=== PATIENT | female | born 1955 | race Caucasian/White ===

== ENCOUNTER 2018-12-17 08:19 | Emergency (ER) | payer OTHER ==
[~2018-12-17] VITALS: Ht 162.6 cm; Wt 64.2 kg
[2018-12-17 08:29] VITALS: BP 129/69; PULSE 86; RESP 18; Ht 162.6 cm; Wt 64.2 kg
[2018-12-17] MEDS ORDERED: IBUPROFEN 600 MG TAB PO ONE (09:00)
[2018-12-17] MEDS ORDERED: IBUP-1542 PO (10:14)
[2018-12-17] MEDS ORDERED: CYCL10TA7 PO (10:14)
--- NOTE | 2018-12-17 11:02 | ERD ---
ER Documentation Chief Complaint Chief Complaint C/O LEFT SIDE OF NECK PAIN FOR 3 WEEK HPI 63-year-old female presents to the ED complaining of moderate neck pain that radiates down to her left shoulder for the past 3 weeks patient states pain is worse with certain movements. She states that she has already seen her primary care physician in which they are in process of giving her a referral to see an orthopedist. Patient states that she has not taken any medications. She denies chest pain, shortness of breath. ROS All systems reviewed and are negative except as per history of present illness. Medications Home Meds Active Scripts Cyclobenzaprine Hcl* (Cyclobenzaprine Hcl*) 10 Mg Tablet, 10 MG PO TID, #30 TAB Prov:ROXANN ANAYA PA-C 12/17/18 Ibuprofen* (Motrin*) 600 Mg Tab, 600 MG PO Q6H PRN for PAIN AND OR ELEVATED TEMP, #30 TAB Prov:ROXANN ANAYA PA-C 12/17/18 Allergies Allergies: Coded Allergies: sulfamethoxazole (Verified Allergy, Unknown, 12/04/15) trimethoprim (Verified Allergy, Unknown, 12/04/15) PMhx/Soc Medical and Surgical Hx: pt denies Surgical Hx Hx Miscellaneous Medical Probl: Yes (COPD, Arthritis) Hx Alcohol Use: Yes (social) Hx Substance Use: No Hx Tobacco Use: Yes Smoking Status: Former smoker Physical Exam Vitals Vital Signs Date Temp Pulse Resp B/P (MAP) Pulse Ox O2 O2 Flow FiO2 Time Delivery Rate 12/17/18 97.6 86 18 129/69 96 08:29 (89) Physical Exam GENERAL: WD/WN, in no apparent distress, non-toxic appearing HENT: NC/AT EYES: Conjunctiva normal NECK: Supple, no masses felt, tender to palpation on spine,tender to palpation on left trapezius muscle, full range of motion but has pain PULM: Normal labored breathing CV: Good capillary refill GI: Non-distended, no guarding BACK: no deformities noted, normal spinal curvature EXT: No clubbing, cyanosis, or edema NEURO: Moves on all fours, sensation intact, normal gait SKIN: intact PSYCH: Normal mood Results 24 hrs Current Medications Medications Dose Sig/Roberto Carlos Start Time Status Last (Trade) Ordered Route PRN Stop Time Admin Dose Reason Admin Ibuprofen 600 mg ONCE ONCE 2/21/19 DC 12/17/18 (Motrin) PO 09:00 09:03 12/17/18 09:01 Procedures/MDM 63-year-old female presents to the ED complaining of left neck pain that varies on her shoulder but this is likely due to DJD and cervical duct. Patient has Star been following up with her primary care physician and referrals are in process. Unfortunately I discussed with her that we will be unable to order an MRI for this today and that she will need her to wait for her referral. In the ED cervical x-ray was done and showed DJD. Patient is given prescription for Flexeril ibuprofen and instructions to follow-up with an orthopedist. I have shelli velasco return precautions stable to discharged home Cervical XRAY The bone mineralization is decreased. C7 and the cervicothoracic junction are not well seen on the lateral view due to shoulder artifact. Alignment of the cervical spine is normal. Vertebral body heights are maintained. There is mild intervertebral disc space narrowing at C4-C5 and C5-C6. Mild to moderate multilevel uncovertebral joint arthritis is present. Prevertebral soft tissues are unremarkable. Departure Diagnosis: Primary Impression: Neck pain Additional Impression: Cervical disc disorder with radiculopathy Condition: Stable Patient Instructions: Degenerative Disk Disease, Neck Pain, No Trauma, Radiculopathy, Cervical Additional Instructions: FOLLOW UP WITH YOUR PRIMARY CARE PHYSICIAN TOMORROW.Return to this facility if you are not improving as expected. Take all medicines as directed. Return to this facility if you are not improving as expected. You have been given a medicine which may cause drowsiness.DO NOT DRIVE OR OPERATE DANGEROUS MACHINERY while taking this medicine! ROXANN ANAYA PA-C Dec 17, 2018 11:02
== END 2018-12-17 10:32 | disposition home or self-care (01) ==
LOC: FTE 08:19
DX: M54.2 Cervicalgia (principal); J44.9 Chronic obstructive pulmonary disease, unspecified; M50.122 Cervical disc disorder at C5-C6 level with radiculopathy; M50.121 Cervical disc disorder at C4-C5 level with radiculopathy; Z87.891 Personal history of nicotine dependence
CPT/HCPCS: 72040; Z7610

== ENCOUNTER 2019-06-07 00:45 | Emergency (ER) | payer MEDICARE, OTHER ==
[~2019-06-07] VITALS: Ht 167.6 cm; Wt 58.0 kg
[~2019-06-07 00:45] MED LIST: ALBU18HF INHALATION; CYCL10TA7 PO; IBUP-1542 PO
[2019-06-07 00:48] VITALS: Ht 167.6 cm; Wt 58.0 kg
[2019-06-07] MEDS ORDERED: DEXAMETHASONE 10 MG/ML 1 ML INJ IV STA (00:54)
[2019-06-07] MEDS ORDERED: ALBUTEROL 0.5% (NEB) 2.5 MG/0.5 ML AMP INH STA (00:54)
[2019-06-07] MEDS ORDERED: IPRATROPIUM (NEB) 0.5 MG/2.5 ML AMP INH STA (00:54)
[2019-06-07] MEDS ORDERED: MAGNESIUM SULFATE 2 GM/50 ML 50 ML IVPB STA (00:54)
[2019-06-07] MEDS ORDERED: LORAZEPAM 2 MG INJ IV ONE (01:00)
--- NOTE | 2019-06-07 02:20 | ERD ---
ER Documentation Chief Complaint Chief Complaint BIB RA FROM HOME FOR ASTHMA SOB HPI 63-year-old female history of asthma who presents to the emergency room with shortness of breath. The patient states that her normal trigger is anxiety. She states that she was emotionally upset prior to arrival. The patient had wheezing via EMS. The patient states that she was recently told to take steroids but did not take them. She denies any fevers chills cough chest pain or pleuritic discomfort. This is similar to asthma exacerbations in the past. ROS All systems reviewed and are negative except as per history of present illness. Medications Home Meds Active Scripts Cyclobenzaprine Hcl* (Cyclobenzaprine Hcl*) 10 Mg Tablet, 10 MG PO TID, #30 TAB Prov:ROXANN ANAYA PA-C 12/17/18 Ibuprofen* (Motrin*) 600 Mg Tab, 600 MG PO Q6H PRN for PAIN AND OR ELEVATED TEMP, #30 TAB Prov:ROXANN ANAYA PA-C 12/17/18 Allergies Allergies: Coded Allergies: sulfamethoxazole (Verified Allergy, Unknown, 12/04/15) trimethoprim (Verified Allergy, Unknown, 12/04/15) PMhx/Soc Medical and Surgical Hx: pt denies Surgical Hx Hx Respiratory Disorders: Yes (ASTHMA) Hx Miscellaneous Medical Probl: Yes (COPD, Arthritis) Hx Alcohol Use: Yes (social) Hx Substance Use: No Hx Tobacco Use: Yes Smoking Status: Current every day smoker FmHx Family History: No diabetes Physical Exam Vitals Vital Signs Date Temp Pulse Resp B/P (MAP) Pulse Ox O2 O2 Flow FiO2 Time Delivery Rate 06/07/19 84 20 93 21 01:00 06/07/19 Nasal 01:00 Cannula 06/07/19 98.5 92 19 138/82 100 Room Air 00:48 (100) 06/07/19 98.5 94 19 144/81 100 00:48 (102) Physical Exam General: Anxious, hyperventilating Head: Normocephalic, atraumatic. Eyes: Pupils equally reactive, EOM intact ENT: Moist mucous membranes Neck: Supple, no lymphadenopathy Respiratory: Slightly decreased aeration, wheezing diffusely, no distress Cardiovascular: RRR, no murmurs, rubs, or gallops Abdominal: Soft, non-tender, non-distended, no peritoneal signs : Deferred MSK: No edema, no unilateral swelling, 5/5 strength Neurologic: Alert and oriented, moving all extremities, normal speech, no focal weakness, no cerebellar signs Skin: No rash Psych: Anxious mood Results 24 hrs Current Medications Medications Dose Sig/Roberto Carlos Start Time Status Last (Trade) Ordered Route PRN Stop Time Admin Dose Reason Admin Albuterol 15 mg ONCE STAT 06/07/19 DC 06/07/19 (Proventil INH 00:54 01:00 0.5% (Neb)) 06/07/19 00:55 Ipratropium 2 mg ONCE STAT 06/07/19 DC 06/07/19 [place] INH 00:54 00:59 (Atrovent 06/07/19 00:55 0.02% (Neb)) 10 mg ONCE STAT 06/07/19 DC 06/07/19 Dexamethasone IV 00:54 01:30 (Decadron) 06/07/19 00:55 Magnesium 50 ml @ 25 ONCE STAT 06/07/19 06/07/19 Sulfate mls/hr IVPB 00:54 01:30 06/07/19 02:53 Lorazepam 0.5 mg ONCE ONCE 06/07/19 DC 06/07/19 (Ativan) IV 01:00 01:30 06/07/19 01:01 Procedures/MDM EKG, MONITORS, & DIAGNOSTIC IMAGING: EKG: I reviewed and interpreted a 12-lead EKG. Rhythm: Normal sinus rhythm ST Changes: No contiguous ST segment elevations T waves: No contiguous T wave inversions Impression: No evidence of acute cardiac ischemia MEDICAL DECISION MAKING: Clinical exam history and presentation very consistent with anxiety reaction and possible asthma exacerbation. No signs or symptoms concerning for PE, dissection, ACS or pneumonia. Laboratory testing and chest x-ray imaging not indicated. ER COURSE: * Patient was given hour-long breathing treatment, Decadron, magnesium * Anxiolysis also provided * During this timeframe the patient had dramatic improvement. The patient has subjective and objective improvement. * At this point I feel the patient can be safely discharged with close primary care follow-up. Return precautions were discussed and understood. CONSULTATION: None DISPOSITION PLAN: The patient does not have an identifiable emergent medical condition that warrants inpatient hospitalization at this time. The patient is deemed safe for discharge with outpatient follow-up. We discussed follow up with the patient's primary care doctor within 24 to 48 hours as needed. We also discussed return to the emergency room for worsening symptoms or worsening condition. Outpatient referral: None required Discharge Medications: Ventolin Departure Diagnosis: Primary Impression: Acute asthma exacerbation Asthma severity: unspecified severity Asthma persistence: unspecified Qualified Codes: J45.901 - Unspecified asthma with (acute) exacerbation Additional Impression: Anxiety reaction Condition: Stable FERMIN SIEGEL MD Jun 07, 2019 02:20
[2019-06-07 04:15] VITALS: BP 138/82; PULSE 85; RESP 19
== END 2019-06-07 04:16 | disposition home or self-care (01) ==
LOC: E/R 00:45
DX: J45.901 Unspecified asthma with (acute) exacerbation (principal); F17.210 Nicotine dependence, cigarettes, uncomplicated; F41.9 Anxiety disorder, unspecified
CPT/HCPCS: 93005; 94644; 96374; 96375; 99284; J1100; J2060; J3475